=== PATIENT | male | born 1985 | race Two or more races ===

== ENCOUNTER 2025-04-04 11:55 | Emergency (ER) | payer MEDICAID, SELFPAY ==
[2025-04-04 11:56] VITALS: BMI 26.5
[2025-04-04 12:58] VITALS: BP 159/91; PULSE 77; RESP 18; TEMP 37; O2SAT 98; BMI 26.6
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
[2025-04-04] MEDS: DIPHTH,PERTUSS(ACELL),TET VAC 0.5 ML SYR- ADULT IMi (13:29)
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
== END 2025-04-04 15:51 | disposition left against medical advice (07) ==
PROVIDERS: Emergency Provider Emergency Medicine
DX: S01.112A Laceration without foreign body of left eyelid and periocular area, initial encounter (principal); Z23 Encounter for immunization; Z53.29 Procedure and treatment not carried out because of patient's decision for other reasons; W22.8XXA Striking against or struck by other objects, initial encounter; Y93.12 Activity, springboard and platform diving; S02.832A Fracture of medial orbital wall, left side, initial encounter for closed fracture; S02.32XA Fracture of orbital floor, left side, initial encounter for closed fracture
CPT/HCPCS: 70450; 72125; 90471; 90715; 99281